=== PATIENT | female | born 1960 | race Native Hawaiian/Other Pacific Islander ===

== ENCOUNTER 2021-04-16 13:10 | Outpatient (CLI) | payer OTHER ==
[~2021-04-16] VITALS: Ht 167.6 cm; Wt 63.5 kg
== END 2021-04-16 20:19 | disposition home or self-care (01) ==
LOC: INF 13:10
PROVIDERS: ATTEND Internal Medicine Endocrinology, Diabetes & Metabolism
DX: Z23 Encounter for immunization (principal); U07.1 COVID-19
CPT/HCPCS: 96365; M0244